=== PATIENT | female | born 1945 | race African-American/Black ===

== ENCOUNTER 2017-11-29 17:24 | Inpatient (IN) ==
[2017-11-29] MEDS ORDERED: LEVOFLOXACIN INJ 750 MG in PREMIX 1 EACH IV STA (17:42)
[2017-11-29] MEDS ORDERED: SODIUM CHLORIDE 0.9% 2,000 ML IV STA ×2 (17:42→19:03)
[2017-11-29 18:01] LABS: Basophils # 0.1 10*3/uL (0.0-0.2); Basophils % 0.6 % (0.0-0.8); Eosinophils # 0.2 10*3/uL (0.0-0.87); Eosinophils % 1.4 % (0.00-10.9); Hematocrit 38.2 VOL% (35.7-47.0); Hemoglobin 12.4 GM/DL (12.0-16.0); Immature Granulocytes % 0.4 %; Immature Granulocytes Absolute 0.07 #; Lymphocytes # 2.8 10*3/uL (1.4-4.0); Lymphocytes % 17.6 % (21.3-54.2); Mean Corpuscular HGB Conc 32.5 GM/DL (32-36); Mean Corpuscular Hemoglobin 23 PG (27-34); Mean Corpuscular Volume 70.7 FL (87-102); Monocytes # 1.2 10*3/uL (0.11-0.8); Monocytes % 7.4 % (1.7-12.7); Neutrophils # 11.7 10*3/uL (1.4-7.4); Neutrophils % 72.6 % (38.7-73.9); Platelet Count 370 T/CUMM (130-400); Red Cell Distribution Width 15.1 % (9.3-17.3); White Blood Count 16.1 T/CUMM (4-12)
[2017-11-29 18:09] LABS: INR 1.5; PT Patient Result 15.9 SECS; Partial Thromboplastin Time 29.2 SECS (0-40)
[2017-11-29 18:31] LABS: Alanine Aminotransferase 16 U/L (13-56); Albumin 3.2 G/DL (3.4-5.0); Alkaline Phosphatase 57 U/L (45-117); Aspartate Amino Transferase 10 U/L (0-37); Bilirubin,Total < 0.39 MG/DL (0.2-1.0); Blood Urea Nitrogen 107 MG/DL (7-18); Lactic Acid 1.8 MMOL/L (0.4-2.0); Osmolality,Calculated 315.4 MOS/KG (273-304); Potassium 4.6 MMOL/L (3.5-5.1); Sodium 126 MMOL/L (136-145); Total Protein 6.7 G/DL (6.4-8.3)
[2017-11-29 18:34] LABS: Ammonia 30 UMOL/L (11-32)
[2017-11-29 18:36] LABS: Glucose 620 MG/DL (74-106)
[2017-11-29 18:48] LABS: Apearance,Urine CLOUDY (Clear); Bacteria,Urine Occasional /HPF (Few); Bilirubin,Urine Negative (Negative); Blood, Urine Negative (Negative); Glucose,Urine (UA) >=500 mg/dL (Negative); Ketones,Urine Negative (Negative); Mucus,Urine Occasional /LPF (Occasional); Nitrite,Urine Negative (Negative); Protein,Urine Negative; Squamous Epithelial Cell,Urine Occasional /HPF (0-10); Urine Color Yellow (Yellow); Urine Specific Gravity 1.014 (1.001-1.035); Urine Urobilinogen < 2.0 EU/DL (0.2-1.0); WBC,Urine 3 /HPF (0-6)
[2017-11-29 18:53] LABS: Barbiturates Screen,Urine Negative (Negative); Benzodiazepines Screen,Urine Positive (Negative); Cannabinoid Screen,Urine Negative (Negative); Opiate Screen,Urine Negative (Negative); Phencyclidine Screen,Urine Negative (Negative)
[2017-11-29] MEDS ORDERED: INSULIN REGULAR 100 UNIT/ML SUBCUT STA (19:01)
[2017-11-29] MEDS ORDERED: INSULIN REGULAR 100 UNIT/ML IV STA (19:01)
[2017-11-29] MEDS ORDERED: ONDANSETRON 4 MG/2 ML VIAL IV PRN (19:13)
[2017-11-29] MEDS ORDERED: ACETAMINOPHEN 325 MG TABLET PO PRN (19:13)
[2017-11-29] MEDS ORDERED: SODIUM BICARB INJ 100 MEQ in STERILE WATER INJ 400 ML IV PRN (19:16)
[2017-11-29] MEDS ORDERED: DEXTROSE 50% 25 GM/50 ML VIAL IV PRN ×2 (19:16)
[2017-11-29] MEDS ORDERED: INSULIN REGULAR 100 UNIT/ML IV ONE (19:16)
[2017-11-29] MEDS ORDERED: MAGNESIUM SULF RIDER 4 GM in PREMIX 1 EACH IV PRN (19:16)
[2017-11-29] MEDS ORDERED: SODIUM CHLORIDE 0.9% 1,000 ML IV ONE (19:16)
[2017-11-29] MEDS ORDERED: SODIUM PHOSPHATE INJ 19.3 MMOL in SODIUM CHLORIDE 0.9% 250 ML IV PRN (19:16)
[2017-11-29] MEDS ORDERED: INSULIN REGULAR DRIP 100 ML IV SCH (19:30)
[2017-11-29] MEDS ORDERED: SODIUM CHLORIDE 0.9% 1,000 ML IV SCH (20:16)
[2017-11-29] MEDS ORDERED: hydrALAZINE 20 MG/1 ML VIAL IV PRN (20:49)
[2017-11-29] MEDS ORDERED: BUDESONIDE/FORMOTEROL 160-4.5 INHALER 6 GM INH PRN (20:51)
[2017-11-29] MEDS ORDERED: ALPRAZolam 0.5 MG TABLET PO PRN (20:51)
[2017-11-29] MEDS ORDERED: THEOPHYLLINE ER 300 MG TABLET PO PRN (20:51)
[2017-11-29 22:02] LABS: Calcium 7.3 MG/DL (8.5-10.1); Osmolality,Calculated 305.7 MOS/KG (273-304); Potassium 4.8 MMOL/L (3.5-5.1)
[2017-11-29] MEDS: PANTOPRAZOLE 40 MG VIAL IV SCH (22:17)
[2017-11-29 22:45] LABS: ABG Base Excess -9.9 MMOL/L (-2.5-2.5); ABG Oxygen Saturation 94.1 % (95-100); ABG PCO2 41.5 MM HG (35-48); ABG PH 7.231 (7.35-7.45); ABG PO2 87.4 MM HG (80-95); ABG TCO2 18.3 MMOL/L (23-27)
[2017-11-29] MEDS: NOREPINEPHRINE 8 MG in SODIUM CHLORIDE 0.9% 242 ML IV PRN (23:37)
[2017-11-29] MEDS: DEXTROSE 5% NACL 0.9% 1,000 ML IV SCH (23:45)
[2017-11-30 00:02] LABS: Calcium 6.8 MG/DL (8.5-10.1); Osmolality,Calculated 305.5 MOS/KG (273-304); Potassium 3.6 MMOL/L (3.5-5.1)
[2017-11-30] MEDS ORDERED: SODIUM CHLORIDE 0.9% 1,000 ML IV SCH (00:16)
[2017-11-30] MEDS: POTASSIUM CHLORIDE RIDER 10 MEQ in PREMIX 1 EACH IV PRN ×2 (01:26→04:20)
[2017-11-30] MEDS: DEXTROSE 5% NACL 0.9% 1,000 ML IV SCH ×2 (01:39→02:14)
[2017-11-30 05:21] LABS: INR 1.7; PT Patient Result 17.4 SECS
[2017-11-30 05:28] LABS: Albumin 2.4 G/DL (3.4-5.0); Calcium 7.1 MG/DL (8.5-10.1); Osmolality,Calculated 307.8 MOS/KG (273-304); Potassium 4.2 MMOL/L (3.5-5.1); Risk Ratio 4.52; VLDL CHOLESTEROL 37.2 MG/DL
[2017-11-30 05:30] LABS: Basophils # 0.1 10*3/uL (0.0-0.2); Basophils % 0.5 % (0.0-0.8); Eosinophils # 0.4 10*3/uL (0.0-0.87); Eosinophils % 2.3 % (0.00-10.9); Hematocrit 35.7 VOL% (35.7-47.0); Hemoglobin 11.6 GM/DL (12.0-16.0); Immature Granulocytes % 0.6 %; Immature Granulocytes Absolute 0.09 #; Lymphocytes # 3.2 10*3/uL (1.4-4.0); Lymphocytes % 21.1 % (21.3-54.2); Mean Corpuscular HGB Conc 32.5 GM/DL (32-36); Mean Corpuscular Hemoglobin 23 PG (27-34); Mean Corpuscular Volume 71.5 FL (87-102); Mean Platelet Volume 11.3 FL (9.6-12.0); Monocytes # 1.2 10*3/uL (0.11-0.8); Monocytes % 7.6 % (1.7-12.7); Neutrophils # 10.4 10*3/uL (1.4-7.4); Neutrophils % 67.9 % (38.7-73.9); Platelet Count 336 T/CUMM (130-400); Red Blood Count 4.99 MC/CUMM (3.8-5.5); Red Cell Distribution Width 15.1 % (9.3-17.3); White Blood Count 15.4 T/CUMM (4-12)
[2017-11-30] MEDS ORDERED: DEXTROSE 5% NACL 0.45% 1,000 ML IV SCH (06:00)
[2017-11-30] MEDS: LEVOTHYROXINE 112 MCG TABLET PO SCH (06:37)
[2017-11-30 07:11] LABS: Granular Casts,Urine 5 /LPF (0-1)
[2017-11-30] MEDS ORDERED: LACTATED RINGERS 1,000 ML IV ONE (07:54)
[2017-11-30] MEDS ORDERED: LEVOFLOXACIN INJ 500 MG in PREMIX 1 EACH IV ONE (08:00)
[2017-11-30 08:28] LABS: Calcium 7.1 MG/DL (8.5-10.1); Osmolality,Calculated 302.5 MOS/KG (273-304); Potassium 4.3 MMOL/L (3.5-5.1)
[2017-11-30 09:33] LABS: Creatinine,Urine Random < 13 MG/DL; Total Protein,Urine Random 11 MG/DL; Urea Nitrogen, Urine Random 164 MG/DL
[2017-11-30 09:48] LABS: Free T4 (Free Thyroxine) 0.84 NG/DL (0.76-1.46); Thyroid Stimulating Hormone 4.3 uIU/ml (0.358-3.74)
[2017-11-30] MEDS ORDERED: GLUCAGON 1 MG VIAL IM PRN (10:20)
[2017-11-30] MEDS ORDERED: INSULIN GLARGINE 100 UNIT/ML SUBCUT SCH (10:30)
[2017-11-30] MEDS: SODIUM CHLORIDE 0.45% 1,000 ML IV SCH ×2 (10:37→17:32)
[2017-11-30 10:40] LABS: Apearance,Urine Slightly Hazy (Clear); Bacteria,Urine Occasional /HPF (Few); Bilirubin,Urine Negative (Negative); Blood, Urine Small mg/dL (Negative); Glucose,Urine (UA) 150 mg/dL (Negative); Hyaline Casts,Urine 2 /LPF (0-3); Ketones,Urine Negative (Negative); Mucus,Urine Occasional /LPF (Occasional); Nitrite,Urine Negative (Negative); Protein,Urine Negative; RBC,Urine 3 /HPF (0-4); Squamous Epithelial Cell,Urine Occasional /HPF (0-10); Urine Color Colorless (Yellow); Urine Specific Gravity 1.005 (1.001-1.035); Urine Urobilinogen < 2.0 EU/DL (0.2-1.0); WBC,Urine 21 /HPF (0-6)
[2017-11-30 10:46] LABS: Hyaline Casts,Urine 25 /LPF (0-3)
[2017-11-30] MEDS: INSULIN LISPRO 100 UNIT/ML SUBCUT SCH ×3 (12:05→21:17)
[2017-11-30] MEDS ORDERED: SODIUM CHLORIDE 0.45% 1,000 ML IV SCH (12:16)
[2017-11-30] MEDS: NOREPINEPHRINE 8 MG in SODIUM CHLORIDE 0.9% 242 ML IV PRN (16:20)
[2017-11-30] MEDS: WARFARIN 3 MG TABLET PO SCH (17:36)
[2017-11-30] MEDS: PANTOPRAZOLE 40 MG VIAL IV SCH (18:44)
[2017-12-01] MEDS: SODIUM CHLORIDE 0.45% 1,000 ML IV SCH ×4 (01:16→21:28)
[2017-12-01 05:17] LABS: Basophils # 0.1 10*3/uL (0.0-0.2); Basophils % 0.7 % (0.0-0.8); Eosinophils # 0.5 10*3/uL (0.0-0.87); Eosinophils % 3.5 % (0.00-10.9); Hematocrit 35.9 VOL% (35.7-47.0); Hemoglobin 11.4 GM/DL (12.0-16.0); Immature Granulocytes % 0.4 %; Immature Granulocytes Absolute 0.05 #; Lymphocytes % 28.7 % (21.3-54.2); Mean Corpuscular HGB Conc 31.8 GM/DL (32-36); Mean Corpuscular Hemoglobin 23 PG (27-34); Mean Corpuscular Volume 72.2 FL (87-102); Mean Platelet Volume 11.4 FL (9.6-12.0); Monocytes # 1.1 10*3/uL (0.11-0.8); Monocytes % 8.1 % (1.7-12.7); Neutrophils # 8.1 10*3/uL (1.4-7.4); Neutrophils % 58.6 % (38.7-73.9); Platelet Count 307 T/CUMM (130-400); Red Blood Count 4.97 MC/CUMM (3.8-5.5); Red Cell Distribution Width 15.2 % (9.3-17.3); White Blood Count 13.8 T/CUMM (4-12)
[2017-12-01 05:51] LABS: Calcium 7.3 MG/DL (8.5-10.1); Osmolality,Calculated 288.8 MOS/KG (273-304); Potassium 3.9 MMOL/L (3.5-5.1)
[2017-12-01] MEDS: POTASSIUM CHLORIDE RIDER 10 MEQ in PREMIX 1 EACH IV PRN (06:30)
[2017-12-01] MEDS: LEVOTHYROXINE 112 MCG TABLET PO SCH (06:30)
[2017-12-01] MEDS: glyBURIDE 5 MG TABLET PO SCH (08:19)
[2017-12-01] MEDS: LEVOFLOXACIN INJ 250 MG in PREMIX 1 EACH IV SCH (08:20)
[2017-12-01] MEDS: INSULIN LISPRO 100 UNIT/ML SUBCUT SCH ×4 (08:20→21:22)
[2017-12-01] MEDS: INSULIN GLARGINE 100 UNIT/ML SUBCUT SCH (08:20)
[2017-12-01] MEDS ORDERED: HYDROCORTISONE 100 MG VIAL IV ONE (09:23)
[2017-12-01] MEDS: NYSTATIN 500,000 UNIT/5 ML UDCUP SWISH/SWAL SCH ×3 (13:53→21:23)
[2017-12-01] MEDS: HYDROCORTISONE 100 MG VIAL IV SCH (16:59)
[2017-12-01] MEDS: WARFARIN 3 MG TABLET PO SCH (18:07)
[2017-12-02] MEDS: HYDROCORTISONE 100 MG VIAL IV SCH ×2 (01:02→08:35)
[2017-12-02 05:06] LABS: Basophils % 0.2 % (0.0-0.8); Eosinophils # 0.1 10*3/uL (0.0-0.87); Eosinophils % 0.8 % (0.00-10.9); Hematocrit 32.6 VOL% (35.7-47.0); Hemoglobin 10.2 GM/DL (12.0-16.0); Immature Granulocytes % 0.6 %; Immature Granulocytes Absolute 0.08 #; Lymphocytes # 1.9 10*3/uL (1.4-4.0); Lymphocytes % 13.3 % (21.3-54.2); Mean Corpuscular HGB Conc 31.3 GM/DL (32-36); Mean Corpuscular Hemoglobin 23 PG (27-34); Mean Corpuscular Volume 74.4 FL (87-102); Mean Platelet Volume 11.7 FL (9.6-12.0); Monocytes # 0.8 10*3/uL (0.11-0.8); Monocytes % 5.2 % (1.7-12.7); Neutrophils # 11.5 10*3/uL (1.4-7.4); Neutrophils % 79.9 % (38.7-73.9); Platelet Count 242 T/CUMM (130-400); Red Blood Count 4.38 MC/CUMM (3.8-5.5); Red Cell Distribution Width 14.9 % (9.3-17.3); White Blood Count 14.4 T/CUMM (4-12)
[2017-12-02 05:13] LABS: INR 1.7; PT Patient Result 17.9 SECS
[2017-12-02 05:43] LABS: Potassium 4.4 MMOL/L (3.5-5.1); Uric Acid 5.4 MG/DL (2.6-6.0)
[2017-12-02] MEDS: LEVOTHYROXINE 112 MCG TABLET PO SCH (06:05)
[2017-12-02] MEDS: SODIUM CHLORIDE 0.45% 1,000 ML IV SCH ×3 (06:05→16:29)
[2017-12-02] MEDS: PANTOPRAZOLE 40 MG TABLET PO SCH (08:26)
[2017-12-02] MEDS: glyBURIDE 5 MG TABLET PO SCH (08:26)
[2017-12-02] MEDS: NYSTATIN 500,000 UNIT/5 ML UDCUP SWISH/SWAL SCH ×4 (08:27→21:47)
[2017-12-02] MEDS: LEVOFLOXACIN INJ 250 MG in PREMIX 1 EACH IV SCH (08:27)
[2017-12-02] MEDS: INSULIN LISPRO 100 UNIT/ML SUBCUT SCH ×4 (08:27→21:45)
[2017-12-02] MEDS: INSULIN GLARGINE 100 UNIT/ML SUBCUT SCH (08:27)
[2017-12-02] MEDS: ALBUTEROL 2.5 MG/3 ML NEB RESP TX PRN ×2 (13:00→19:02)
[2017-12-02] MEDS: WARFARIN 3 MG TABLET PO SCH (17:05)
[2017-12-02] MEDS: HYDROCORTISONE 10 MG TABLET PO SCH ×2 (17:06→21:47)
[2017-12-03 05:05] LABS: Basophils # 0.1 10*3/uL (0.0-0.2); Basophils % 0.5 % (0.0-0.8); Eosinophils # 0.2 10*3/uL (0.0-0.87); Eosinophils % 2.1 % (0.00-10.9); Hematocrit 31.5 VOL% (35.7-47.0); Hemoglobin 9.8 GM/DL (12.0-16.0); Immature Granulocytes % 0.4 %; Immature Granulocytes Absolute 0.04 #; Lymphocytes # 2.4 10*3/uL (1.4-4.0); Lymphocytes % 21.4 % (21.3-54.2); Mean Corpuscular HGB Conc 31.1 GM/DL (32-36); Mean Corpuscular Hemoglobin 23 PG (27-34); Mean Corpuscular Volume 73.3 FL (87-102); Mean Platelet Volume 11.4 FL (9.6-12.0); Monocytes # 0.7 10*3/uL (0.11-0.8); Monocytes % 6.4 % (1.7-12.7); Neutrophils # 7.6 10*3/uL (1.4-7.4); Neutrophils % 69.2 % (38.7-73.9); Platelet Count 245 T/CUMM (130-400); Red Cell Distribution Width 14.8 % (9.3-17.3)
[2017-12-03 05:38] LABS: Calcium 7.2 MG/DL (8.5-10.1); Osmolality,Calculated 281.4 MOS/KG (273-304); Potassium 3.4 MMOL/L (3.5-5.1)
[2017-12-03] MEDS: LEVOTHYROXINE 112 MCG TABLET PO SCH (06:01)
[2017-12-03] MEDS: MAGNESIUM SULF RIDER 2 GM in PREMIX 1 EACH IV PRN ×2 (07:08→09:10)
[2017-12-03] MEDS: INSULIN LISPRO 100 UNIT/ML SUBCUT SCH ×4 (07:18→20:33)
[2017-12-03] MEDS ORDERED: MAGNESIUM SULF RIDER 4 GM in PREMIX 1 EACH IV ONE (08:01)
[2017-12-03] MEDS: NYSTATIN 500,000 UNIT/5 ML UDCUP SWISH/SWAL SCH ×4 (08:13→20:34)
[2017-12-03] MEDS: POTASSIUM CHLORIDE 20 MEQ TABLET PO SCH ×3 (08:13→17:02)
[2017-12-03] MEDS: glyBURIDE 5 MG TABLET PO SCH (08:13)
[2017-12-03] MEDS: PANTOPRAZOLE 40 MG TABLET PO SCH (08:13)
[2017-12-03] MEDS: INSULIN GLARGINE 100 UNIT/ML SUBCUT SCH (08:14)
[2017-12-03] MEDS: LEVOFLOXACIN INJ 250 MG in PREMIX 1 EACH IV SCH (08:16)
[2017-12-03] MEDS: HYDROCORTISONE 10 MG TABLET PO SCH ×2 (08:17→20:34)
[2017-12-03] MEDS: AMOXICILLIN/CLAV 500 MG TABLET PO SCH ×2 (08:19→20:34)
[2017-12-03] MEDS: ALBUTEROL 2.5 MG/3 ML NEB RESP TX PRN ×3 (10:08→23:50)
[2017-12-03] MEDS ORDERED: ALLOPURINOL 100 MG TABLET PO PRN (13:16)
[2017-12-03] MEDS: WARFARIN 3 MG TABLET PO SCH (17:02)
[2017-12-03] MEDS: MULTIVITAMIN (CENTRUM) TABLET PO SCH (17:02)
[2017-12-03] MEDS ORDERED: MONTELUKAST 10 MG TABLET PO SCH (21:00)
[2017-12-04 05:36] LABS: INR 2.7
[2017-12-04 05:38] LABS: PT Patient Result 27.1 SECS
[2017-12-04 05:55] LABS: Calcium 7.8 MG/DL (8.5-10.1); Osmolality,Calculated 277.4 MOS/KG (273-304); Potassium 3.3 MMOL/L (3.5-5.1)
[2017-12-04 06:45] VITALS: BP 125/83
[2017-12-04] MEDS: LEVOTHYROXINE 112 MCG TABLET PO SCH (06:45)
[2017-12-04] MEDS: INSULIN LISPRO 100 UNIT/ML SUBCUT SCH (08:30)
[2017-12-04] MEDS: PANTOPRAZOLE 40 MG TABLET PO SCH (09:45)
[2017-12-04] MEDS: INSULIN GLARGINE 100 UNIT/ML SUBCUT SCH (09:45)
[2017-12-04] MEDS: NYSTATIN 500,000 UNIT/5 ML UDCUP SWISH/SWAL SCH (09:45)
[2017-12-04] MEDS: AMOXICILLIN/CLAV 500 MG TABLET PO SCH (09:45)
[2017-12-04] MEDS: glyBURIDE 5 MG TABLET PO SCH (09:45)
[2017-12-04] MEDS: MULTIVITAMIN (CENTRUM) TABLET PO SCH (09:45)
[2017-12-04] MEDS: HYDROCORTISONE 10 MG TABLET PO SCH (09:45)
[2017-12-04] MEDS ORDERED: POTASSIUM CHLORIDE 20 MEQ TABLET PO ONE (10:31)
== END 2017-12-04 11:00 | disposition home or self-care (01) | DRG 637 ==
LOC: EDUNIT# → EDBD → N.ED 17:24 → N.EDINP 19:13 → SUATTDRO 19:13 → N.ICU 19:28 → N.CC 20:32 → N.3E 12-03 19:45
PROVIDERS: ADMIT Family Medicine